=== PATIENT | female | born 1940 | race Caucasian/White ===

== ENCOUNTER → 2017-11-12 | Outpatient (CLI) | payer OTHER ==
[~2017-11-12] MED LIST: CELECOXIB200 MG PO; CRESTOR10 MG PO; CYMBALTA30 MG PO; ELIQUIS5 MG PO; FERROUS SULFAT325 MG PO; HYDROCODON-ACE1 EAC7 PO; IRON325 M1 PO; LO-DOSE ASPIRIN81 M1 PO; NEXIUM40 MG PO; NITROSTAT0.4 MG SL; OXYCONTIN10 MG PO; PRAVACHOL80 MG PO; SENNA PLUS TAB1 EACH PO; TIMOPTIC-X100 DROP/5 BOTH EYES; TOPROL XL50 MG PO; VITAMIN D2000 UNIT PO; WOMEN'S DAILY1 EAC1 PO
== END | disposition home or self-care (01) ==
DX: R13.10 Dysphagia, unspecified (principal); K21.9 Gastro-esophageal reflux disease without esophagitis
CPT/HCPCS: 92611 GN; G8996 GN; G8997 GN; G8998 GN